=== PATIENT | female | born 1985 | race Caucasian/White ===

== ENCOUNTER 2018-03-18 11:13 | Emergency (ER) | payer OTHER ==
[~2018-03-18] VITALS: Ht 170.2 cm; Wt 83.9 kg
[~2018-03-18 11:13] MED LIST: ADDERALL XR 3030 MG PO; AMOXICILLIN875 M1 PO; BACTRIM DS TAB1 EACH PO; BUPROPION HCL300 MG PO; GOOD SENSE IBU200 MG PO; LAMOTRIGINE100 MG; MIRENA1 EACH; OXYCODONE5 M1 PO; ZOFRAN ODT4 MG PO
--- NOTE | 2018-03-18 11:45 | ED GENERAL ADULT ---
History of Present Illness General Chief Complaint: Suture Removal/Wound Recheck Stated Complaint: WOUND CHECK Source: patient Exam Limitations: no limitations Vital Signs & Intake/Output Vital Signs & Intake/Output Vital Signs Date Time Temp Pulse Resp B/P B/P Pulse O2 O2 Flow FiO2 Mean Ox Delivery Rate 03/18 1213 97.9 92 16 119/74 97 Room Air 03/18 1149 Room Air 03/18 1117 98.9 109 18 142/91 99 Room Air Allergies Uncoded Allergies: PET HAIR/DANDER (HIVES, TRIGGER ASTHMA 03/27/15) Reconcile Medications Acetaminophen 500 MG TABLET 2 TAB PO PRN PAIN (Reported) Albuterol Sulfate (Proair Respiclick) 90 MCG AER.POW.BA 2 PUFF INH PRN ASTHMA (Reported) Amoxicillin 875 MG TABLET 1 TAB PO BID CELLULITIS Dextroamphetamine/Amphetamine (Adderall XR 30 MG Capsule) 30 MG CAP.ER.24H 1 CAP PO QAM ADD (Reported) Ibuprofen (Ibuprofen Ib) 200 MG TABLET 4 TAB PO PRN PAIN/INFLAMMATION ( Reported) Levonorgestrel (Mirena) 20 MCG/24 HOUR (5 YEARS) IUD CONTROL (Reported) Loratadine (Claritin) 10 MG TABLET 1 TAB PO DAILY ALLERGIES (Reported) Sulfamethoxazole/Trimethoprim (Bactrim Ds Tablet) 800 MG-160 MG TABLET 1 TAB PO BID ABSCESS Tylenol With Codeine (Tylenol With Codeine #3 Tablet) 300 MG-30 MG TABLET 1 TAB PO Q4-6 PRN PRN pain Triage Note: PT HERE FOR WOUND CHECK ON TOP OF HER BUTTOCKS. Triage Nurses Notes Reviewed? yes Onset: Abrupt Duration: day(s): (5), better, continues in ED Timing: single episode today : No Patient currently breastfeeds: No HPI: 32-year-old female presents for evaluation of an abscess recheck. 2 days ago she was seen for an abscess in her gluteal area. She was started on antibiotics after incision and drainage. She feels like the swelling has gone down but she still is having pain. She denies any fever. (Italo Merlos) Past History Travel History Traveled to [place] past 21 day No Medical History Any Pertinent Medical History? see below for history Neurological: NONE EENT: NONE Cardiovascular: NONE Respiratory: NONE Gastrointestinal: NONE Hepatic: NONE Renal: NONE Musculoskeletal: NONE Psychiatric: ADD Endocrine: NONE Blood Disorders: NONE Cancer(s): NONE HVAC/R SERVICE TECHNICIAN/Reproductive: NONE Surgical History Surgical History: cholecystectomy Psychosocial History What is your primary language Wolof Tobacco Use: Never used ETOH Use: occasional use Illicit Drug Use: denies illicit drug use Family History Hx Contributory? No (Italo Merlos) Review of Systems Review of Systems Constitutional: Reports: no symptoms. EENTM: Reports: no symptoms. Respiratory: Reports: no symptoms. Cardiovascular: Reports: no symptoms. GI: Reports: no symptoms. Genitourinary: Reports: no symptoms. Musculoskeletal: Reports: no symptoms. Skin: Reports: see HPI (abscess). Neurological/Psychological: Reports: no symptoms. Hematologic/Endocrine: Reports: no symptoms. Immunologic/Allergic: Reports: no symptoms. All Other Systems: Reviewed and Negative (Italo Merlos) Physical Exam Physical Exam General Appearance: well developed/nourished, no apparent distress, alert, awake Head: atraumatic, normal appearance Eyes: Bilateral: normal appearance, EOMI. Ears, Nose, Throat: hearing grossly normal Neck: normal inspection, supple, full range of motion Respiratory: no respiratory distress Back: normal inspection, normal range of motion, no vertebral tenderness Extremities: normal inspection, normal range of motion, no edema Neurologic/Psych: no motor/sensory deficits, awake, alert, oriented x 3 Skin: intact, normal color, warm/dry, gluteal/coccygeal area: abscess is healing well. Induration and erythema have receded. There is only about 1 cm of surrounding induration. No focal fluctuant areas, no discharge the areas tender palpation Core Measures ACS in differential dx? No CVA/TIA Diagnosis: No Sepsis Present: No Sepsis Focused Exam Completed? No (Italo Merlos) Progress Differential Diagnoses I considered the following diagnoses in my evaluation of the patient: [Abscess, pilonidal cyst, pilonidal abscess, cellulitis] Plan of Care: The abscess is healing well. Patient was instructed to continue warm compresses dressing changes daily. Continue both antibiotics for the full course. Discussed return precaution. Patient agrees the plan Initial ED EKG: none (Italo Merlos) Departure Departure Disposition: HOME OR SELF CARE Condition: Stable Clinical Impression Primary Impression: Abscess re-check Referrals: Erendira Ledesma DO (PCP/Family) Additional Instructions: CONTINUE TO TAKE ANTIBIOTICS FOR FULL COURSE. APPLY WARM COMPRESSESS FOR 15-20 MIN EVERY FEW HOURS. CHANGE DRESSING DAILY, FOLLOW UP WITH YOUR DOCTOR FOR ANOTHER RECHECK IN A FEW DAYS. RETURN WITH ANY CONCERNS. Departure Forms: Customer Survey General Discharge Information Prescriptions: Current Visit Scripts Tylenol With Codeine (Tylenol With Codeine #3 Tablet) 1 TAB PO Q4-6 PRN PRN pain #10 TAB (Italo Merlos) PA/SOFTWARE SUPPORT TECHNICIAN Co-Sign Statement Statement: ED Attending supervision documentation- [] I saw and evaluated the patient. I have also reviewed all the pertinent lab results and diagnostic results. I agree with the findings and the plan of care as documented in the PA's/SOFTWARE SUPPORT TECHNICIAN's documentation. [X] I have reviewed the ED Record and agree with the PA's/SOFTWARE SUPPORT TECHNICIAN's documentation. [] Additions or exceptions (if any) to the PAs/SOFTWARE SUPPORT TECHNICIAN's note and plan are summarized below: [] (Ulysses DYER,Steve Diaz) Critical Care Note Critical Care Note Critical Care Time: non-applicable (Italo Merlos)
[2018-03-18] MEDS ORDERED: PROAIR RESPICL90 MCG INH (12:04)
[2018-03-18] MEDS ORDERED: ACETAMINOPHEN500 M4 PO (12:04)
[2018-03-18] MEDS ORDERED: CLARITIN10 M1 PO (12:04)
[2018-03-18] MEDS ORDERED: IBUPROFEN IB200 M1 PO (12:05)
[2018-03-18 12:13] VITALS: BP 119/74
[2018-03-18] MEDS ORDERED: TYLENOL WITH C1 EACH PO (12:13)
== END 2018-03-18 12:08 ==
LOC: ERH 11:13
DX: L02.31 Cutaneous abscess of buttock (principal)